=== PATIENT | female | born 1955 | race Caucasian/White ===

== ENCOUNTER 2017-03-27 12:34 | Day surgery (SDC) | payer BC ==
[~2017-03-27 12:34] MED LIST: Acetaminophen TAB* 325 MG PO PRN; Buffered Lidocaine 0.9% SYRIN* 5 ML/SYR SYRINGE INTRADERM ONE
[2017-03-27] MEDS ORDERED: Buffered Lidocaine 0.9% SYRIN* 5 ML/SYR SYRINGE ONE (12:39)
[2017-03-27] MEDS ORDERED: Cyclopentolate 1% OPTH.SOL* 2 ML BTL ONE (12:39)
[2017-03-27] MEDS ORDERED: acetaZOLAMIDE TAB* 250 MG ONE (12:39)
[2017-03-27] MEDS ORDERED: Povidone Iodine 5% OPTH* 30 ML BTL ONE (12:39)
[2017-03-27] MEDS ORDERED: Phenylephrine 2.5% OPTH.SOL* 2 ML BTL ONE (12:39)
[2017-03-27] MEDS ORDERED: Neomycin/Polymy/Dex OPTH.SUSP* MAXITROL 0.1% 5 ML ONE (12:39)
[2017-03-27] MEDS ORDERED: Proparacaine 0.5% OPHTH.SOL* 15 ML BTL ONE (12:39)
[2017-03-27] MEDS ORDERED: Lidocaine 1% MPF* 2 ML VIAL ONE (12:39)
[2017-03-27] MEDS ORDERED: Ketorolac 0.5% OPHTH (NF) 0.5 % 5 ML BTL ONE (12:40)
[2017-03-27] MEDS ORDERED: Midazolam* 1 MG/ML 2 ML VIAL (2 MG) ONE ×2 (14:53→15:36)
[2017-03-27 16:30] VITALS: BP 163/79
--- NOTE | 2017-03-28 05:50 | OP ---
DATE OF OPERATION: 03/27/17 [facility] DATE OF : 53 SURGEON: Tj Montoya M.D. PREOPERATIVE DIAGNOSIS: Cataract, right eye. POSTOPERATIVE DIAGNOSIS: Cataract, right eye. OPERATIVE PROCEDURE: Phacoemulsification, right eye, with IOL. DESCRIPTION OF PROCEDURE: The patient was brought to the operating room after being given 1/2% Alcaine with epinephrine drops in the preoperative area. The eye was prepped and draped in the usual sterile fashion. Sterile drape and eyelid speculum were placed. Again, topical 1/2% Alcaine with epinephrine was given. A paracentesis incision was made at the 9 o'clock position with the No.75 blade. Clear cornea incision 2.2 x 2.2-mm was created at the 12 o'clock position starting at the anterior limbus using the 2.2-mm keratome. The anterior chamber was irrigated with 0.4 mL of 1% non-preservative intracameral lidocaine and filled with DisCoVisc. A capsulorrhexis was completed using the cystotome and the Utrata forceps. Hydrodissection was performed with balanced salt solution. The lens nucleus was removed with the Phacoemulsification handpiece without incident. Cortex was removed with the irrigation-aspiration handpiece. The capsular bag was re-inflated using DisCoVisc and an [id number] 26.5 implant was inserted with the shooter. The irrigation-aspiration handpiece was used to remove all residual DisCoVisc. The eye was refilled with balanced salt solution and the wound checked and found to be watertight. Topical Maxitrol drops were given. [id number]/[facility] #: [id number] MTDD
== END 2017-03-27 16:13 | disposition home or self-care (01) ==
LOC: OREAST 12:34
PROVIDERS: ATTEND Specialist
DX: H25.11 Age-related nuclear cataract, right eye (principal); H40.013 Open angle with borderline findings, low risk, bilateral; H04.123 Dry eye syndrome of bilateral lacrimal glands; I25.10 Atherosclerotic heart disease of native coronary artery without angina pectoris; I10 Essential (primary) hypertension; I27.0 Primary pulmonary hypertension
CPT/HCPCS: A9270-GY; J2250; V2632

== ENCOUNTER 2017-04-03 07:23 | Day surgery (SDC) | payer BC ==
[2017-04-03] MEDS ORDERED: Povidone Iodine 5% OPTH* 30 ML BTL ONE (08:01)
[2017-04-03] MEDS ORDERED: Proparacaine 0.5% OPHTH.SOL* 15 ML BTL ONE (08:01)
[2017-04-03] MEDS ORDERED: Buffered Lidocaine 0.9% SYRIN* 5 ML/SYR SYRINGE ONE (08:01)
[2017-04-03] MEDS ORDERED: Phenylephrine 2.5% OPTH.SOL* 2 ML BTL ONE (08:01)
[2017-04-03] MEDS ORDERED: Neomycin/Polymy/Dex OPTH.SUSP* MAXITROL 0.1% 5 ML ONE (08:01)
[2017-04-03] MEDS ORDERED: acetaZOLAMIDE TAB* 250 MG ONE (08:01)
[2017-04-03] MEDS ORDERED: Lidocaine 1% MPF* 2 ML VIAL ONE (08:01)
[2017-04-03] MEDS ORDERED: Cyclopentolate 1% OPTH.SOL* 2 ML BTL ONE (08:01)
[2017-04-03] MEDS ORDERED: Ketorolac 0.5% OPHTH (NF) 0.5 % 5 ML BTL ONE (08:02)
[2017-04-03] MEDS ORDERED: Midazolam* 1 MG/ML 2 ML VIAL (2 MG) ONE ×2 (08:41→09:11)
--- NOTE | 2017-04-03 09:39 | OP ---
DATE OF OPERATION: 04/03/2017 - [facility] DATE OF : 1955. SURGEON: Tj Montoya M.D. PREOPERATIVE DIAGNOSIS: Cataract left eye. POSTOPERATIVE DIAGNOSIS: Cataract left eye. OPERATIVE PROCEDURE: Phacoemulsification left eye with IOL. DESCRIPTION OF PROCEDURE: The patient was brought to the operating room after being given 1/2% Alcaine with epinephrine drops in the preoperative area. The eye was prepped and draped in the usual sterile fashion. Sterile drape and eyelid speculum were placed. Again, topical 1/2% Alcaine with epinephrine was given. A paracentesis incision was made at the 3 o'clock position with the No.75 blade. Clear cornea incision 2.2 x 2.2-mm was created at the 6 o'clock position starting at the anterior limbus using the 2.2-mm keratome. The anterior chamber was irrigated with 0.4 mL of 1% non-preservative intracameral lidocaine and filled with DisCoVisc. A capsulorrhexis was completed using the cystotome and the Utrata forceps. Hydrodissection was performed with balanced salt solution. The lens nucleus was removed with the Phacoemulsification handpiece without incident. Cortex was removed with the irrigation-aspiration handpiece. The capsular bag was re-inflated using DisCoVisc and an [id number] 24 implant was inserted with the shooter. The irrigation-aspiration handpiece was used to remove all residual DisCoVisc. The eye was refilled with balanced salt solution and the wound checked and found to be watertight. Topical Maxitrol drops were given. [id number]/[facility] #: [id number] [facility]
[2017-04-03 09:42] VITALS: BP 152/71
== END 2017-04-03 09:48 | disposition home or self-care (01) ==
LOC: OREAST 07:23
PROVIDERS: ATTEND Specialist
DX: H25.12 Age-related nuclear cataract, left eye (principal); H40.013 Open angle with borderline findings, low risk, bilateral; H04.123 Dry eye syndrome of bilateral lacrimal glands; I10 Essential (primary) hypertension
CPT/HCPCS: A9270-GY; J2250; V2632

== ENCOUNTER 2017-09-23 11:17 | Day surgery (SDC) | payer BC ==
[2017-09-23] MEDS ORDERED: cefTRIAXone(*) 2 GM ADDV.VIAL IVPB ONE (11:22)
[2017-09-23] MEDS ORDERED: Buffered Lidocaine 0.9% SYRIN* 5 ML/SYR SYRINGE ONE (11:22)
--- NOTE | 2017-09-23 11:36 | HP ---
CC: Dr. Leena Bustillos DATE OF ADMISSION: 09/23/2017. HISTORY OF PRESENT ILLNESS: Ms. Pabon is a 61-year-old white female who is admitted with a right ureteral calculus for cystoscopy and placement of a right ureteral stent. Ms. Pabon is a known stone former and had required a right ureteroscopy, laser lithotripsy and a stent placement in June 2013. In January 2016, she also required a laser lithotripsy of an 8 mm left ureteral calculus. She has been maintained on potassium citrate for stone prevention. She was known to have residual nonobstructing right renal calculi. She presented to our office today with a three days' history of recurrent episodes of right flank pain. She did not have any fever or chills. Renal ultrasound in our office showed mild to moderate right hydronephrosis, a 6 mm calculus in the lower pole calyx of the right kidney and a 1.5 cm calculus in the mid right ureter. KUB which confirmed the presence of a 1.5 cm radiopaque calculus at the L4 level. Because of the above history, the size of the stone and its location, the patient is admitted for urgent placement a right ureteral stent in preparation for definitive treatment of the stone. PAST MEDICAL HISTORY AND SYSTEM REVIEW: She had a past history of breast cancer and has required a left mastectomy in the past. She has morbid obesity and had undergone a Selena-en-Y bypass in 2007. She has a past history of rheumatic heart disease with tricuspid and mitral valve disorders, but they have been asymptomatic. MEDICATIONS: She is hypertensive, maintained on Cardizem 180 mg daily, HCTZ 12.5 mg daily. She is on Cymbalta 60 mg daily, and Concerta 36 mg daily. She has hyperlipedemia and was just started on Provatatin 20 mg daily. She has GERD on Omeprazole 20 mg daily. PAST SURGICAL HISTORY: She had a total knee replacement by Dr. Silva in February 2014 with good results. She has had three sections. She also had a total abdominal hysterectomy. ALLERGIES: She denies any allergies to medications. PHYSICAL EXAMINATION GENERAL: Obese, white female who looks her age. VITAL SIGNS: Blood pressure 170/90. LUNGS: Lungs are clear. HEART: Regular and rhythmic. ABDOMEN: Soft. She has mild right CVA tenderness. EXTREMITIES: Normal. IMPRESSION: 1.5 cm obstructing calculus in the mid right ureter in the absence of urinary tract infection. PLAN: Cystoscopy and placement of a right ureteral stent. Depending upon the position of the calculus following the stent placement will decide whether the patient will be a candidate for ureteroscopy and laser lithotripsy or shockwave lithotripsy. I discussed the above plans with the patient. All her questions were answered. [id number]/[facility] #: [id number] SHARONDA
[2017-09-23] MEDS ORDERED: Naloxone* 0.4 MG/ML 1 ML VIAL IV PRN (12:14)
[2017-09-23] MEDS ORDERED: fentaNYL* 50 MCG/ML 2 ML VIAL (100 MCG VIAL) IV PRN (12:14)
[2017-09-23] MEDS ORDERED: DiMENhydriNATE IV* 50 MG/ML VIAL IV PUSH PRN (12:14)
[2017-09-23] MEDS ORDERED: Midazolam* 1 MG/ML 2 ML VIAL (2 MG) ONE (12:18)
[2017-09-23] MEDS ORDERED: fentaNYL* 50 MCG/ML 2 ML VIAL (100 MCG VIAL) ONE (12:18)
[2017-09-23] MEDS ORDERED: Propofol* 10 MG/ML 20 ML BTL IV PUSH ONE (12:18)
[2017-09-23] MEDS ORDERED: Iohexol 180 (CONTRAST) 10 ML SDV IV ONE (12:21)
[2017-09-23] MEDS ORDERED: Ketorolac INJ* 30 MG/ML 1 ML VIAL ONE (13:00)
[2017-09-23] MEDS ORDERED: Ondansetron INJ* 2 MG/ML VIAL ONE (13:00)
[2017-09-23] MEDS ORDERED: Dexamethasone IV* 4 MG/ML 1 ML (4 MG) ONE (13:00)
--- NOTE | 2017-09-23 13:15 | RAD ---
INDICATION: Right stent placement COMPARISONS: September 23, 2017 TECHNIQUE: Fluoroscopy was provided for a retrograde pyelogram and stent placement. Total fluoroscopy time is: 7 seconds FINDINGS: Spot images demonstrate contrast within the renal collecting system. A ureteral stent is noted. IMPRESSION: FLUOROSCOPY WAS PROVIDED FOR A RETROGRADE PYELOGRAM AND STENT PLACEMENT CPT II Codes: 6045F
[2017-09-23 13:45] VITALS: BP 143/80
--- NOTE | 2017-09-26 17:56 | OP ---
CC: Dr. Leena Bustillos * DATE OF OPERATION: 09/23/17 - [facility] DATE OF : 53 SURGEON: Hugh Box MD ANESTHESIOLOGIST: Yaw Ray MD ANESTHESIA: General. PRE-OP DIAGNOSIS: Right ureteral calculus (1.5 cm). POST-OP DIAGNOSIS: Right ureteral calculus (1.5 cm). OPERATIVE PROCEDURE: 1. Cystoscopy. 2. Right retrograde pyelography and placement of right ureteral stent (6-Palauan ). INDICATION FOR PROCEDURE: Mrs. Pabon is a 61-year-old white female who is a known stone former and who presented with 3 days' history of intermittent episodes of right flank pain. Renal ultrasound and a KUB showed a 1.5-cm radiopaque calculus in the proximal right ureter associated with mild hydronephrosis. Because of that finding and the size of the stone, the patient admitted for stent placement in preparation for definitive treatment of the stone. PATHOLOGY: Fluoroscopy confirmed the presence of the radiopaque calculus at the level of L3-L4. At cystoscopy, the bladder mucosa looked normal. There were no suspicious bladder lesions seen. No calculi or diverticula were noted. Right retrograde pyelography showed moderate right hydronephrosis. DESCRIPTION OF PROCEDURE: After successful general anesthesia, the patient was placed in the lithotomy position and prepped and draped for a cystoscopy. Cystoscopy was performed. The bladder was inspected and the above findings were noted. A flexible hybrid guidewire was introduced into the right orifice and successfully pushed beyond the calculus into the area of the renal pelvis. Retrograde pyelography was performed. A size 6-Palauan stent was then placed with the proximal end coiling in the renal pelvis and the distal end coiling inside the bladder. There was good drainage of contrast from the kidney and no extravasation. The patient tolerated the procedure well and left the operating room in good condition. The plan is to bring the patient back in for definitive treatment of the stone. [id number]/[facility] #: [id number] MTDD
== END 2017-09-23 13:45 | disposition home or self-care (01) ==
LOC: OR 11:17
PROVIDERS: ATTEND Urology
DX: N13.2 Hydronephrosis with renal and ureteral calculous obstruction (principal); G47.33 Obstructive sleep apnea (adult) (pediatric); I10 Essential (primary) hypertension; I34.1 Nonrheumatic mitral (valve) prolapse; K21.9 Gastro-esophageal reflux disease without esophagitis
CPT/HCPCS: 74420; C1876; J0696; J1100; J1885; J2250; J2405; J2704; J3010

== ENCOUNTER 2017-10-09 06:19 | Day surgery (SDC) | payer BC ==
[~2017-10-09 06:19] MED LIST changes: -Acetaminophen TAB* 325 MG PO PRN
[2017-10-09] MEDS ORDERED: cefTRIAXone(*) 2 GM ADDV.VIAL IVPB ONE (06:28)
[2017-10-09] MEDS ORDERED: Buffered Lidocaine 0.9% SYRIN* 5 ML/SYR SYRINGE ONE (06:28)
[2017-10-09] MEDS ORDERED: Iohexol 180 (CONTRAST) 10 ML SDV IV ONE (07:15)
[2017-10-09] MEDS ORDERED: Propofol* 10 MG/ML 20 ML BTL IV PUSH ONE (07:47)
[2017-10-09] MEDS ORDERED: fentaNYL* 50 MCG/ML 2 ML VIAL (100 MCG VIAL) ONE ×2 (07:47→09:21)
[2017-10-09] MEDS ORDERED: Lidocaine 2% PF * 5 ML VIAL ONE (07:47)
[2017-10-09] MEDS ORDERED: oxyCODONE/Acetamin 5/325 MG* TAB PO PRN (08:26)
[2017-10-09] MEDS ORDERED: Naloxone* 0.4 MG/ML 1 ML VIAL IV PRN (08:26)
[2017-10-09] MEDS ORDERED: Acetaminophen TAB* 325 MG PO PRN (08:26)
[2017-10-09] MEDS ORDERED: oxyCODONE/Acetamin 5/325 MG* TAB ONE (09:17)
--- NOTE | 2017-10-09 09:18 | RAD ---
INDICATION: RIGHT ureteral stent exchange and stone removal. COMPARISON: October 07, 2017 abdomen radiograph. TECHNIQUE: 12 seconds fluoroscopy. FINDINGS: Retrograde pyelogram following removal of the previous stent demonstrates mild caliectasis. New ureteral stent placed. IMPRESSION: Procedural fluoroscopy. CPT II Codes: 6045F
[2017-10-09] MEDS: fentaNYL* 50 MCG/ML 2 ML VIAL (100 MCG VIAL) IV PRN ×2 (09:22→09:37)
[2017-10-09 09:46] VITALS: BP 171/71
--- NOTE | 2017-10-09 23:14 | OP ---
CC: Dr. Leena Bustillos.* DATE OF OPERATION: 10/09/17 - [facility] DATE OF : 53 SURGEON: Hugh Box MD ANESTHESIOLOGIST: Dr. Beck Garber. ANESTHESIA: General. PRE-OP DIAGNOSES: 1. Proximal right ureteral calculus (1 cm). 2. Status post placement right ureteral stent. POST-OP DIAGNOSES: 1. Proximal right ureteral calculus (1 cm). 2. Status post placement right ureteral stent. OPERATIVE PROCEDURE: 1. Cystoscopy. 2. Right ureteroscopy, laser lithotripsy and right ureteral stent exchange (7- Hebrew) INDICATIONS: Ms. Pabon is a 61-year-old white female who is a known stone former and who had urgent placement of a right ureteral stent on 09/23/17 for 1.2 cm obstructing calculus in the proximal half of the right ureter. She did well. She [place] She is now admitted for definitive treatment of the stone. PATHOLOGY: At fluoroscopy, the right ureteral stent was in good position. A radiopaque calculus, measuring between 1 and 1.5 cm, was noted in the proximal half of the ureter adjacent to the stent. Upon cystoscopy, the distal limb of the stent was seen coming from the right orifice. There was significant degree of edema and hyperemia of the bladder mucosa adjacent to the stent. Upon right uteroscopy, there was an impacted calculus in the proximal half of the ureter. The calculus had the gross appearance of calcium oxalate stone. There was significant degree of edema and hyperemia of the ureteral mucosa adjacent to the stone. DESCRIPTION OF PROCEDURE: After successful general anesthesia, the patient was placed in the lithotomy position and was prepped and draped for a cystoscopy. Cystoscopy was performed. The bladder was inspected. The above findings were noted. The distal limb of the stent was pulled out to the level of the urethral meatus. A guidewire was the passed into the lumen of the stent; however, the lumen was occluded and the guidewire could not be passed through and through the stent. The stent was then removed. The guidewire was then reintroduced without difficulty and positioned in the area of the renal pelvis. A size 6.5 semirigid ureteroscope was then introduced inside the bladder. A flexible tip spiral basket was introduced through the port of the ureteroscope and the flexible tip was then passed inside the right ureter alongside the guidewire allowing the atraumatic introduction of the ureteroscope into the ureter. The calculus was identified. The basket was deployed proximal to the calculus to avoid its proximal migration. A 550 Micron laser was then introduced through the other port of the ureteroscope. The stone was broken into multiple fragments. The fragments were then extracted using the basket. At the completion of the procedure, there was no significant residual stone fragments noted. There was no damage to the ureteral wall. There was, however , edema and abrasion of the ureteral mucosa from the impaction of the stone. Retrograde pyelography was then performed demonstrating the ureter and showing no evidence of any extravasation. A size 7-Hebrew stent was then placed with the proximal end coiling in the renal pelvis and the distal end coiling inside the bladder. The patient tolerated the procedure well and left the operating room in good condition. The plan is to the leave the stent in place for about 10 days, it will be removed in the office under local anesthesia. [id number]/[facility] #: [id number] SHARONDA
== END 2017-10-09 10:12 | disposition home or self-care (01) ==
LOC: OR 06:19
PROVIDERS: ATTEND Urology
DX: N20.1 Calculus of ureter (principal); I10 Essential (primary) hypertension; M19.90 Unspecified osteoarthritis, unspecified site; F32.9 Major depressive disorder, single episode, unspecified; K21.9 Gastro-esophageal reflux disease without esophagitis
CPT/HCPCS: 74420; 82365; 88300; A9270-GY; C1876; J0696; J2704; J3010

== ENCOUNTER 2019-09-08 17:04 | Emergency (ER) | payer SELFPAY ==
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
[2019-09-08] MEDS ORDERED: oxyCODONE TAB* 5 MG TAB PO ONE (18:24)
[2019-09-08 18:35] VITALS: BP 176/97
== END 2019-09-08 18:35 | disposition home or self-care (01) ==
LOC: ED 17:04
DX: R07.89 Other chest pain (principal); M79.645 Pain in left finger(s); V47.5XXA Car driver injured in collision with fixed or stationary object in traffic accident, initial encounter; Y92.410 Unspecified street and highway as the place of occurrence of the external cause; M85.88 Other specified disorders of bone density and structure, other site; I25.10 Atherosclerotic heart disease of native coronary artery without angina pectoris; I08.1 Rheumatic disorders of both mitral and tricuspid valves; I10 Essential (primary) hypertension; K21.9 Gastro-esophageal reflux disease without esophagitis; Z96.651 Presence of right artificial knee joint; Z87.891 Personal history of nicotine dependence
CPT/HCPCS: 71111; 71120; 99283; A9270-GY